=== PATIENT | female | born 1965 | race Caucasian/White ===

== ENCOUNTER 2023-02-14 10:05 | Emergency (ER) | payer SELFPAY ==
[2023-02-14] MEDS ORDERED: Lidocaine 4% Patch TD SCH (11:00)
== END 2023-02-14 11:23 | disposition home or self-care (01) ==
LOC: NAV ERS 10:05
DX: B02.9 Zoster without complications (principal); F17.210 Nicotine dependence, cigarettes, uncomplicated
CPT/HCPCS: 99282